=== PATIENT | male | born 1980 | race Caucasian/White ===

== ENCOUNTER 2017-09-30 18:49 | Emergency (ER) | payer BC ==
[~2017-09-30] VITALS: Ht 180.3 cm; Wt 81.6 kg
[2017-09-30 19:01] VITALS: BP 145/95
--- NOTE | 2017-09-30 19:49 | NUR ---
PT AMBULATED TO ER BED 04
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
--- NOTE | 2017-09-30 22:00 | NUR ---
Patient being evaluated by physician at bedside.
[2017-09-30 22:50] VITALS: BP 146/96
== END 2017-09-30 22:50 | disposition home or self-care (01) ==
LOC: MED 18:49
DX: S93.491A Sprain of other ligament of right ankle, initial encounter (principal); X58.XXXA Exposure to other specified factors, initial encounter; Y93.89 Activity, other specified; Y92.89 Other specified places as the place of occurrence of the external cause; Y99.8 Other external cause status
CPT/HCPCS: 73610; 99284; Q0092

== ENCOUNTER 2018-07-30 21:41 | Emergency (ER) | payer SELFPAY ==
[~2018-07-30] VITALS: Ht 182.9 cm; Wt 81.6 kg
[2018-07-30 21:47] VITALS: BP 118/67
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
[2018-07-31] MEDS ORDERED: IBUPROFEN 800 MG TAB PO ONE (00:35)
[2018-07-31 01:05] VITALS: BP 115/73
== END 2018-07-31 01:05 | disposition home or self-care (01) ==
LOC: MED 21:41
DX: S20.212A Contusion of left front wall of thorax, initial encounter (principal); S20.312A Abrasion of left front wall of thorax, initial encounter; V28.4XXA Motorcycle driver injured in noncollision transport accident in traffic accident, initial encounter; Y93.55 Activity, bike riding; Y92.410 Unspecified street and highway as the place of occurrence of the external cause; Y99.8 Other external cause status
CPT/HCPCS: 71045; 93005; 99283

== ENCOUNTER 2023-10-04 10:55 | Emergency (ER) | payer SELFPAY ==
[~2023-10-04] VITALS: Ht 180.3 cm; Wt 83.9 kg
[2023-10-04 11:02] VITALS: BP 137/82; PULSE 96; RESP 20; O2SAT 96
[2023-10-04] MEDS: IBUPROFEN 600 MG TAB PO ONE (11:43)
== END 2023-10-04 12:14 ==
LOC: MED 10:55
DX: S50.01XA Contusion of right elbow, initial encounter (principal); S00.81XA Abrasion of other part of head, initial encounter; F15.90 Other stimulant use, unspecified, uncomplicated; F12.90 Cannabis use, unspecified, uncomplicated; Z79.899 Other long term (current) drug therapy; X58.XXXA Exposure to other specified factors, initial encounter; Y93.89 Activity, other specified; Y92.89 Other specified places as the place of occurrence of the external cause; Y99.8 Other external cause status
CPT/HCPCS: 73090; 73130; 99284